=== PATIENT | female | born 1965 | race Caucasian/White ===

== ENCOUNTER 2021-02-04 09:19 | Emergency (ER) | payer BC ==
[2021-02-04] MEDS ORDERED: Ondansetron 4 MG Tab.DIS PO ONE (09:45)
[2021-02-04] MEDS ORDERED: Sodium Chloride 0.9% 10 ML Syringe FLUSH PRN (10:15)
[2021-02-04] MEDS ORDERED: hydrOXYzine HCl 50 MG/ML SDV IM STA (10:17)
[2021-02-04] MEDS ORDERED: Meclizine 25 MG Tab PO STA (10:17)
[2021-02-04] MEDS ORDERED: LORazepam 2 MG/ML SDV IVPUSH STA (10:21)
--- NOTE | 2021-02-04 11:41 | PCM.SN.2 ---
- Free Text/Narrative Note: [facility] Date: 02/04/2021 Time: 1115 to 1121 Procedure: Obtainment of Peripheral Venous Access I was called to the ED by the RN after failed attempt for venous access. I found a superficial peripheral vein on her left very upper medial forearm and prepped the area with a Chlora-Prep sponge times one. I then proceeded to inserted a BD [employer] BC Winged 22 Ga. X 1.00 In. Catheter times one attempt. It advanced easily and was flushed with 10 ml's of Normal Saline w ithout any problems. The patient tolerated this well. I applied an Op-Site dressing to the site. Rich Pozo CRNA, A
--- NOTE | 2021-02-04 12:49 | EDM.PDOC ---
ED HPI GENERAL MEDICAL PROBLEM - General Chief Complaint: General Stated Complaint: Dizzy, Sweaty, Abdominal fullness Time Seen by Provider: 02/04/21 09:35 Source of Information: Reports: Patient, Family History Limitations: Reports: No Limitations - History of Present Illness INITIAL COMMENTS - FREE TEXT/NARRATIVE: Patient presented to the ED because of dizziness, nausea, feeling bloated and couldn't catch her breath because she is hyperventilating. She has runny nose for 2 days but no cough/cols. There is no abdominal pain , changes in bowel movements or urinary s/s. She c/o that whenever she turn her head sideways that's when she experience the vertigo. - Related Data Allergies Allergy/AdvReac Type Severity Reaction Status Date / Time [facility] Allergy Muscle Verified 02/04/21 09:59 Aches Home Meds: Home Meds Cetirizine [ZyrTEC] 10 mg PO DAILY 02/04/21 [History] DULoxetine [Cymbalta] 30 mg PO DAILY 02/04/21 [History] Ibuprofen 800 mg PO TID 02/04/21 [History] Losartan [Cozaar] 25 mg PO DAILY 02/04/21 [History] Meclizine [Antivert] 25 mg PO Q6H #15 tab 02/04/21 [Rx] Ondansetron [Zofran ODT] 4 mg PO Q4H PRN #5 tab.dis 02/04/21 [Rx] Sulfamethoxazole/Trimethoprim [Bactrim Ds Tablet] 1 each PO BID 02/04/21 [History] hydrOXYzine pamoate [Hydroxyzine Pamoate] 25 mg PO BEDTIME PRN 02/04/21 [History] hydroCHLOROthiazide [Hydrochlorothiazide] 12.5 mg PO DAILY 02/04/21 [History] methocarbamoL [Methocarbamol] 500 mg PO TID PRN 02/04/21 [History] Past Medical History Cardiovascular History: Reports: Hypertension Social & Family History - Family History Family Medical History: No Pertinent Family History - Caffeine Use Caffeine Use: Reports: None ED ROS GENERAL - Review of Systems Review Of Systems: See Below Constitutional: Reports: No Symptoms HEENT: Reports: No Symptoms Respiratory: Reports: No Symptoms Cardiovascular: Reports: No Symptoms Endocrine: Reports: No Symptoms GI/Abdominal: Reports: Nausea, Other (bloating) : Reports: No Symptoms Musculoskeletal: Reports: No Symptoms Skin: Reports: No Symptoms Neurological: Reports: No Symptoms Psychiatric: Reports: No Symptoms ED EXAM, DIZZINESS - Physical Exam Exam: See Below Exam Limited By: No Limitations General Appearance: Alert, No Apparent Distress Eye Exam: Bilateral Eye: PERRL Nystagmus: worsens with head to L, worsens with head to R Ears: Normal External Exam, Normal Canal, Hearing Grossly Normal Nose: Normal Inspection, Normal Mucosa, No Blood Throat/Mouth: Normal Inspection, Normal Lips, Normal Teeth Head Exam: Atraumatic, Normocephalic Neck: Normal Inspection, Supple, Non-Tender, Full Range of Motion Respiratory/Chest: No Respiratory Distress, Lungs Clear, Normal Breath Sounds, No Accessory Muscle Use, Chest Non-Tender Cardiovascular: Normal Peripheral Pulses, Regular Rate, Rhythm, No Edema, No Gallop, No JVD, No Murmur, No Rub GI/Abdominal: Normal Bowel Sounds, Soft, Non-Tender, No Organomegaly, No Distention, No Abnormal Bruit, No Mass Neurological: Alert, Normal Mood/Affect, Normal Dorsiflexion, CN II-XII Intact, Normal Plantar Flexion, Normal Gait, Normal Reflexes, No Motor/Sensory Deficits, Oriented x 3 Back Exam: Normal Inspection, Full Range of Motion Extremities: Normal Inspection, Normal Range of Motion, Non-Tender, No Pedal Edema, Normal Capillary Refill Psychiatric: Normal Affect, Normal Mood #1 Interpretation EKG Date: 02/04/21 Time: 11:00 Rhythm: NSR Rate (Beats/Min): 82 Lamont: Normal P-Wave: Present QRS: Normal ST-T: Normal QT: Normal CO/PQ Interval: 167 Comparison: No Change EKG Interpretation Comments: NSR LAE Course - Vital Signs Text/Narrative:: Lab/EKG result was reviewed and discussed with patient Ativan 1 mg IV x1 Meclizine 50 mg PO x1 Zofran 4 mg IV x1 Vistaril 50 mg IM x1 NS 1 L bolus PT consult for vestibular repositioning Last Recorded V/S: Last Vital Signs Temp 36.2 C 02/04/21 12:55 Pulse 86 02/04/21 12:55 Resp 18 02/04/21 12:55 BP 143/83 H 02/04/21 12:55 Pulse Ox 95 02/04/21 12:55 - Orders/Labs/Meds Labs: Laboratory Tests 02/04/21 02/04/21 02/04/21 Range/Units 10:30 10:30 10:30 WBC 7.8 (3.0-10.3) x10-3/uL RBC 4.88 (3.60-5.20) x10(6)uL Hgb 14.5 (11.4-15.5) g/dL Hct 42.6 (34.2-48.2) % MCV 87.4 (76.7-100.5) fL MCH 29.7 (23.9-33.9) pg MCHC 34.0 (31.9-34.8) g/dL RDW 13.0 (12.3-16.5) % Plt Count 259 (151-488) x10(3)uL MPV 6.3 L (7.1-12.4) fL Neut % (Auto) 82.1 H (30.8-76.2) % Lymph % (Auto) 12.6 L (18.4-52.1) % Pickett % (Auto) 4.1 L (4.4-15.7) % Eos % (Auto) 0.5 L (0.6-8.1) % Baso % (Auto) 0.7 (0.2-1.5) % Neut # (Auto) 6.4 H (1.5-6.3) x10-3/uL Lymph # (Auto) 1.0 (1.0-4.4) x10-3/uL Pickett # (Auto) 0.3 (0.3-1.0) x10-3/uL Eos # (Auto) 0.0 (0.0-0.8) x10-3/uL Baso # (Auto) 0.1 (0.0-0.1) x10-3/uL D-Dimer, Quantitative 0.33 (0.0-0.59) mg/LFEU Sodium 139 (135-145) mmol/L Potassium 5.3 D (3.5-5.3) mmol/L Chloride 102 (100-110) mmol/L Carbon Dioxide 26 (21-32) mmol/L BUN 17 (7-18) mg/dL Creatinine 1.0 (0.55-1.02) mg/dL Est Cr Clr Drug Dosing 61.09 mL/min Estimated GFR (MDRD) 57 L (>60) BUN/Creatinine Ratio 17.0 (9-20) Glucose 115 (80-116) mg/dL Calcium 9.4 (8.6-10.2) mg/dL Total Bilirubin 1.0 (0.1-1.3) mg/dL AST 16 (5-25) IU/L ALT 26 D (12-36) U/L Alkaline Phosphatase 106 (56-112) IU/L Troponin I (4.0-60.3) pg/mL Total Protein 7.4 (6.0-8.0) g/dL Albumin 3.9 (3.5-5.2) g/dL Globulin 3.5 g/dL Albumin/Globulin Ratio 1.1 11/30/21 Range/Units 10:30 WBC (3.0-10.3) x10-3/uL RBC (3.60-5.20) x10(6)uL Hgb (11.4-15.5) g/dL Hct (34.2-48.2) % MCV (76.7-100.5) fL MCH (23.9-33.9) pg MCHC (31.9-34.8) g/dL RDW (12.3-16.5) % Plt Count (151-488) x10(3)uL MPV (7.1-12.4) fL Neut % (Auto) (30.8-76.2) % Lymph % (Auto) (18.4-52.1) % Pickett % (Auto) (4.4-15.7) % Eos % (Auto) (0.6-8.1) % Baso % (Auto) (0.2-1.5) % Neut # (Auto) (1.5-6.3) x10-3/uL Lymph # (Auto) (1.0-4.4) x10-3/uL Pickett # (Auto) (0.3-1.0) x10-3/uL Eos # (Auto) (0.0-0.8) x10-3/uL Baso # (Auto) (0.0-0.1) x10-3/uL D-Dimer, Quantitative (0.0-0.59) mg/LFEU Sodium (135-145) mmol/L Potassium (3.5-5.3) mmol/L Chloride (100-110) mmol/L Carbon Dioxide (21-32) mmol/L BUN (7-18) mg/dL Creatinine (0.55-1.02) mg/dL Est Cr Clr Drug Dosing mL/min Estimated GFR (MDRD) (>60) BUN/Creatinine Ratio (9-20) Glucose (80-116) mg/dL Calcium (8.6-10.2) mg/dL Total Bilirubin (0.1-1.3) mg/dL AST (5-25) IU/L ALT (12-36) U/L Alkaline Phosphatase (56-112) IU/L Troponin I < 4.0 L (4.0-60.3) pg/mL Total Protein (6.0-8.0) g/dL Albumin (3.5-5.2) g/dL Globulin g/dL Albumin/Globulin Ratio Meds: Medications Discontinued Medications Generic Name Dose Route Start Last Admin Trade Name Freq PRN Reason Stop Dose Admin Hydroxyzine HCl 50 mg 02/04/21 10:17 02/04/21 10:37 Hydroxyzine Hcl 50 Mg/Ml Sdv IM 02/04/21 10:18 50 mg NOW STA Administration Lorazepam 1 mg 02/04/21 10:21 02/04/21 11:33 Lorazepam 2 Mg/Ml Sdv IVPUSH 02/04/21 10:22 1 mg NOW STA Administration Meclizine HCl 50 mg 02/04/21 10:17 02/04/21 10:37 Meclizine 25 Mg Tab PO 02/04/21 10:18 50 mg NOW STA Administration Ondansetron HCl 4 mg 02/04/21 09:45 02/04/21 09:51 Ondansetron 4 Mg Tab.Dis PO 02/04/21 09:46 4 mg ONETIME ONE Administration Sodium Chloride 10 ml 02/04/21 10:15 Sodium Chloride 0.9% 10 Ml Syringe FLUSH ASDIRECTED PRN Keep Vein Open Departure - Departure Time of Disposition: 12:45 Disposition: Home, Self-Care 01 Condition: Good Clinical Impression: BPV (benign positional vertigo), URI (upper respiratory infection) - Discharge Information Prescriptions: Meclizine [Antivert] 25 mg PO Q6H #15 tab Ondansetron [Zofran ODT] 4 mg PO Q4H PRN #5 tab.dis PRN Reason: Nausea Instructions: Upper Respiratory Infection, Adult, [id number], Benign Positional Vertigo Referrals: Nito Jaramillo MD [Primary Care Provider] - Forms: ED Department Discharge Additional Instructions: Please read discharge instructions on vertigo and URI-viral Drink at least 2 liters of water daily Zofran ODT 4 mg every 4 hours as needed for nausea Meclizine 25 mg every 6 hours for 4 days Keep your appointment for PT Sepsis Event Note (ED) - Evaluation Sepsis Screening Result: No Definite Risk
== END 2021-02-04 13:10 | disposition home or self-care (01) ==
LOC: FB.ED 09:19
DX: H81.10 Benign paroxysmal vertigo, unspecified ear (principal); J06.9 Acute upper respiratory infection, unspecified; I10 Essential (primary) hypertension; Z88.1 Allergy status to other antibiotic agents; Z79.899 Other long term (current) drug therapy
CPT/HCPCS: 36415; 80053; 84484; 85025; 85379; 93005; 96372; 96374; 97161-GP; 99284-25; A9270-GY; J2060; J3410